=== PATIENT | male | born 1965 | race Caucasian/White ===

== ENCOUNTER → 2021-06-16 | Outpatient (CLI) | payer BC | LOC: MRI 07:36 | PROVIDERS: ATTEND Specialist | DX: M75.112 Incomplete rotator cuff tear or rupture of left shoulder, not specified as traumatic (principal); M25.512 Pain in left shoulder ==

== ENCOUNTER → 2021-07-02 | Day surgery (SDC) | payer BC ==
[2021-06-30 11:08] LABS: ANION GAP 15.7 mmol/L (8-16); CALCIUM 9.3 mg/dL (8.4-10.2); CREATININE, SERUM 0.83 mg/dL (0.72-1.25); POTASSIUM 3.7 mmol/L (3.5-5.1)
[~2021-07-02] MED LIST: AMLODIPINE BESY10 MG PO; B12 ACTIVE1000 MCG; CALCIUM; EPINEPHRINE 1 MG/ML 30ML VIAL ONE; HYDROCHLOROTHIA25 MG PO; MAGNESIUM; MORPHINE SULFATE INJ 2 MG/ML SYR ONE; MULTI-VITAMIN1 EACH PO; NEURONTIN100 MG PO; SODIUM CHLORIDE 0.9% 50ML 100 ML ONE; VITAMIN C100 MG
[2021-07-02 13:36] VITALS: BP 106/91
== END | disposition home or self-care (01) ==
LOC: OR 07:43
PROVIDERS: ATTEND Specialist
DX: M75.102 Unspecified rotator cuff tear or rupture of left shoulder, not specified as traumatic (principal); M19.012 Primary osteoarthritis, left shoulder; M65.812 Other synovitis and tenosynovitis, left shoulder; S46.112A Strain of muscle, fascia and tendon of long head of biceps, left arm, initial encounter; I10 Essential (primary) hypertension; Z01.810 Encounter for preprocedural cardiovascular examination; Z01.812 Encounter for preprocedural laboratory examination; Z01.818 Encounter for other preprocedural examination; Z20.822 Contact with and (suspected) exposure to COVID-19
CPT/HCPCS: 29822; 29824; 29826; 29827; 36415; 71046; 80048; 93005; C1713; J0690; J2270; U0002